=== PATIENT | male | born 1995 | race Caucasian/White ===

== ENCOUNTER 2019-10-10 09:19 | Emergency (ER) | payer OTHER ==
[2019-10-10 09:49] LABS: BASOPHILS % (AUTO) 0.2 %; EOSINOPHILS # (AUTO) 0.1 10^3/uL (0.0-0.7); EOSINOPHILS % (AUTO) 0.6 %; HGB - HEMOGLOBIN 13.2 g/dL (14.0-18.0); LYMPHOCYTES # (AUTO) 1.2 10^3/uL (1.5-3.5); LYMPHOCYTES % (AUTO) 12.1 %; MEAN CORPUSCULAR HGB CONC 34.2 g/dL (32.0-36.0); MEAN CORPUSCULAR VOLUME 87.7 fL (80.0-94.0); MEAN PLATELET VOLUME 9.9 fL (7.4-11.4); MONOCYTES # (AUTO) 0.4 10^3/uL (0.0-1.0); MONOCYTES % (AUTO) 4.5 %; NEUTROPHILS # (AUTO) 8.1 10^3/uL (1.5-6.6); NEUTROPHILS % (AUTO) 82.2 %; PLT - PLATELET COUNT 188 10^3/uL (130-450); RED CELL DISTRIBUTION WIDTH 13.2 % (12.0-15.0); WHITE BLOOD COUNT 9.8 x10^3/uL (4.8-10.8)
--- NOTE | 2019-10-10 10:01 | ED Physician Documentation ---
PD HPI NVD - Stated complaint Stated Complaint: VOMITING - Chief complaint Chief Complaint: Abd Pain - History obtained from History obtained from: Patient - History of Present Illness Timing - onset: How many hours ago (few), Today Timing - duration: Hours Timing - details: Abrupt onset (he says he had some upper abd discomfort and nausea this morning. Had then an emesis of bright red blood. Vomited again several minutes later and was coffee ground looking. Now with just some nausea. Concerned about the blood. Had gastritis from NSAIDs couple years ago with some melena at that time. Needed transfusion, so brisk bleeding. Had EGD with cautery per pt. No problems since and does not take NSAIDs. No regular stomach meds.), Still present (improved nausea and not feeling urgency of emesis at this time.) Associated symptoms: Abdominal pain (some upper abd pain this morning. Borden okay yesterday.). No: Melena, Near syncope / syncope, Loss of appetite Contributing factors: Alcohol use (had some vodka drinks last night; does not drink daily, but occasional (once/twice weekly).). No: Sick contact, Bad food, Travel Improved by: No: Vomiting Worsened by: Eating Similar symptoms before: Diagnosis (had ulcer/gastritis from NSAIDs in the past with bleeding.) Review of Systems Constitutional: denies: Fever, Chills, Myalgias Nose: denies: Rhinorrhea / runny nose, Congestion Throat: denies: Sore throat Respiratory: denies: Cough GI: reports: Abdominal Pain, Nausea, Vomiting, Hematemesis. denies: Abdominal Swelling, Constipation, Diarrhea, Bloody / black stool : denies: Dysuria, Frequency Neurologic: denies: Generalized weakness, Focal weakness, Numbness, Near syncope, Altered mental status Endocrine: denies: Weight loss, Easy bruising / bleeding PD PAST MEDICAL HISTORY - Past Medical History Cardiovascular: None Respiratory: None Neuro: None Endocrine/Autoimmune: None GI: GI bleed, Ulcers - Present Medications Home Medications: Ambulatory Orders Medication Instructions Recorded Confirmed Famotidine 20 mg PO DAILY #15 tablet 10/10/19 Ondansetron Odt [Zofran] 4 mg TL Q6H PRN #15 tablet 10/10/19 - Allergies Allergies/Adverse Reactions: Allergies Allergy/AdvReac Type Severity Reaction Status Date / Time No Known Drug Allergies Allergy Verified 10/10/19 09:28 - Social History Does the pt smoke?: No Smoking Status: Never smoker PD ED PE NORMAL - Vitals Vital signs reviewed: Yes - General General: Alert and oriented X 3, No acute distress, Well developed/nourished - HEENT HEENT: Pharynx benign - Neck Neck: Supple, no meningeal sign, No adenopathy - Cardiac Cardiac: RRR, No murmur - Respiratory Respiratory: Clear bilaterally - Abdomen Abdomen: Normal bowel sounds, Soft, Non tender, Non distended - Derm Derm: Normal color, Warm and dry - Extremities Extremities: Normal ROM s pain - Neuro Neuro: Alert and oriented X 3, No motor deficit, Normal speech Results - Vitals Vitals: Oxygen O2 Source Room air - Labs Labs: Laboratory Tests 10/10/19 10/10/19 10/10/19 09:30 09:30 09:30 WBC 9.8 RBC 4.40 L Hgb 13.2 L Hct 38.6 L MCV 87.7 MCH 30.0 MCHC 34.2 RDW 13.2 Plt Count 188 MPV 9.9 Neut # (Auto) 8.1 H Lymph # (Auto) 1.2 L [place]erry # (Auto) 0.4 Eos # (Auto) 0.1 Baso # (Auto) 0.0 Absolute Nucleated RBC 0.00 Nucleated RBC % 0.0 Sodium 137 Potassium 4.0 Chloride 103 Carbon Dioxide 27 Anion Gap 7.0 BUN 14 Creatinine 0.7 Estimated GFR (MDRD) 139 Glucose 125 H Calcium 9.1 Magnesium 2.1 Total Bilirubin 0.3 AST 21 ALT 17 Alkaline Phosphatase 33 L Total Protein 7.4 Albumin 4.7 Globulin 2.7 Albumin/Globulin Ratio 1.7 Lipase 24 PD MEDICAL DECISION MAKING - ED course Complexity details: considered differential (reported hematemesis without preceding gastritis symptoms. Drinks irregularly (couple times a week), so unlikely varices/liver problems. Consider Lenka Tijerina tear versus alcoholic gastritis. No further vomiting here. Not nauseated now. Stable blood count and vitals. ), d/w patient Departure - Departure Disposition: 01 Home, Self Care Clinical Impression: Nausea and vomiting Qualifiers: Vomiting type: hematemesis Qualified Code(s): K92.0 - Hematemesis Hematemesis Qualifiers: Nausea presence: with nausea Qualified Code(s): K92.0 - Hematemesis Condition: Stable Record reviewed to determine appropriate education?: Yes Instructions: ED Bleed UGI Stable, ED Nausea Vomiting Follow-Up: [facility] [Provider Group] Prescriptions: Famotidine 20 mg PO DAILY #15 tablet Ondansetron Odt [Zofran] 4 mg TL Q6H PRN #15 tablet PRN Reason: Nausea / Vomiting Comments: Home and rest today. Small frequent fluids and bland food. Return to work tomorrow if feeling improved. Expect some dark stool today and tomorrow since you had some bleeding from your stomach. That should taper down and dissipate within 2 to 3 days. Ondansetron if needed for nausea. I would suggest famotidine acid reducing medicine daily for 10 days or so. Recheck if not improved well over the next couple of days and return sooner if repeated vomiting or appearing increased bleeding. Forms: Activity restrictions Discharge Date/Time: 10/10/19 11:26
[2019-10-10 10:04] LABS: ALBUMIN 4.7 g/dL (3.2-5.5); ALBUMIN/GLOBULIN RATIO 1.7 (1.0-2.2); BILIRUBIN,TOTAL 0.3 mg/dL (0.2-1.0); CALCIUM 9.1 mg/dL (8.5-10.3); CREATININE 0.7 mg/dL (0.6-1.2); TOTAL PROTEIN 7.4 g/dL (6.7-8.2)
[2019-10-10] MEDS: SODIUM CHLORIDE 0.9% 1,000 ML IV ONE (10:32)
[2019-10-10] MEDS: ONDANSETRON 4 MG/2 ML VIAL IVP STA (10:33)
[2019-10-10] MEDS: MAG HYDROX/AL HYDROX/SIMETH 30 ML UDC PO STA (10:33)
[2019-10-10] MEDS: FAMOTIDINE 20 MG/2 ML SYRINGE IVP STA (10:33)
[2019-10-10] MEDS: LIDOCAINE VISCOUS 2% 15 ML UDC MM STA (10:33)
[2019-10-10 11:26] VITALS: BP 128/88
== END 2019-10-10 11:26 | disposition home or self-care (01) ==
LOC: ED 09:19
DX: K92.0 Hematemesis (principal)
CPT/HCPCS: 36415; 80053; 83690; 83735; 85025; 96361; 96374; 99284

== ENCOUNTER 2021-03-19 12:43 | Outpatient (CLI) | payer OTHER ==
[2021-03-19 13:28] VITALS: BP 132/85
--- NOTE | 2021-03-19 13:28 | SLEEP CARE CONSULTATION ---
Information from patient questionnaire entered by Huyen Hubbard. I have reviewed and concur with the information entered by Huyen Hubbard. This document represents the service I personally performed and the decisions made by me, Chitra Melvin ARNP. History of Present Illness Service Date and Time: 03/19/2021 1243 Reason for Visit: New patient Chief Complaint: reports: Unrefreshed sleep, Snoring, Excessive daytime sleepiness, Fatigue, Frequent awakenings at night Date of Onset: 2 years Usual bedtime: 2405-9648 Time it takes to fall asleep: 30-45 minutes Snores at night: Yes Observed to quit breathing while asleep: Yes Sleeps alone due to snoring: No Number of times waking at night: 3-10 Reasons for waking at night: reports: Snoring, Pain, Other (unknown reasons) Toss, Turn, or Twitch while sleeping: Yes Recalls having dreams: No (cannot remember a dream for a long time) Usually gets out of bed at: 1813-6503 Feels refreshed in the morning: No Morning headache: Yes (3 days a week, william during allergy season; they last less than hour) Sleepy or fatigued during the day: Yes Ever fallen asleep while driving: No Takes day naps: No Dreams during day naps: No Prior sleep studies: No Additional HPI information: I had the pleasure of seeing PHOEBE LARSON today regarding the possibility of him having a sleep disorder. His current complaints are excessive daytime sleepiness, fatigue, frequent night awakenings, snoring and unrefreshed sleep. He has been having trouble with his sleep for about 2 years with snoring, unrefreshed sleep and frequent night awakenings. He states in the last 6 months his sleeping issues/fatigue have gotten worse. He wakes up feeling exhausted/tired. His gets after him for snoring loudly but continues to sleep in same room. She has not seen more than a momentary pause in breathing without any gasping/choking sounds. He states he feels like he needs more air nearly every morning. He is not gasping but feels like he needs to take a few deep breath waking up. He toss/turns at night and wakes up between 3-10 times a night. He has not been able to remember dreaming for a long time. He is able to go back to sleep within 5 minutes of waking but sometimes he has no reason for waking up at all. He sometimes has pain in the back of his throat with some oral dryness that wakes him up as well. His father has sleep apnea and is treated. 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 Patient is and lives in [place]. Have you smoked in the past 12 months: No Cigarettes per day (20/pack): 30 Years of smokin Quit date: 2018 Smoking Pack Years: 9.0 Alcohol use: Yes Alcohol amount and frequency: 3-4/week Caffeine use: Yes Caffeine amount and frequency: 1/day Family History Family history of sleep disordered breathing: Yes Family Hx Sleep Apnea: Father: Snoring, Sleep apnea - Treated, Sibling: Snoring, Grandparent: Snoring Allergies and Home Medications Drug allergies reviewed: Yes (Cefprozil) Home medication list reviewed: Yes Allergy and home medication list: Meloxicam Famotidine Review of Systems Weight gain over past 5 years: 20 Cardiovascular: denies: high blood pressure Gastrointestinal: denies: heartburn Neurological: reports: headaches. denies: head trauma Psychiatric: reports: anxiety Ear/Nose/Throat: reports: sinus problems, wisdom teeth removed (50%). denies: injury to nose, tonsillectomy Endocrine: reports: sluggishness, too hot or cold, increased appetite. denies: thyroid disease Musculoskeletal: reports: joint pain, neck pain, back pain Immunologic: reports: sneezing, allergies to food or environment (cashew, [place], seasonal allergies) Physical Exam Blood Pressure: 132/85 Cuff size: wrist Heart Rate: 65 O2 Saturation: 98 Height: 5 ft 6 in Weight: 179 lb Body Mass Index: 28.8 BMI Classification: Overweight Neck circumference: 14.25 (inches) Nostrils: patent to airflow Mouth and throat: narrow oropharynx Soft palate: long Hard palate: normal Uvula visualization: 50% Mallampati Class II Tongue: enlarged in size with teeth lucero on lateral edges Tonsils: 1+ Neck: normal w/o lymphadenopathy or thyromegaly Heart: regular rate and rhythm Lungs: clear bilaterally Impression and Plan 1. Suspected Obstructive Sleep Apnea-Hypopnea Syndrome, as suggested by a history of loud and irregular snoring, gasping or choking in sleep, morning headache, frequent awakening during the night, unrefreshed sleep, cognitive impairment, and excessive daytime sleepiness. Narrow oropharynx and obesity are common predisposing factors for obstructive sleep apnea-hypopnea syndrome. I recommend proceeding to polysomnography to confirm the diagnosis and to assess severity. If the patient has significant sleep disordered breathing, a manual CPAP titration study will also be performed to find the optimal treatment pressure. I informed the patient of what the sleep studies involve and after some discussion, obtained agreement to proceed. The pathophysiology of obstructive sleep apnea-hypopnea syndrome was discussed with the patient and health risks of cardiovascular and cerebrovascular disease if not treated. AASM brochure for obstructive sleep apnea-hypopnea syndrome given and reviewed. 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 Patient agreed to plan. * Schedule polysomnography +- manual CPAP titration study and return in 1-2 weeks after the study to discuss result and initiate therapy. * Avoid long distance driving or driving when feeling sleepy. * Avoid alcohol, sedative and muscle relaxant around bedtime. * Attempt to lose weight. * Review instructions provided by trained office staff on how to prepare for the sleep study. * Return for follow-up after sleep study completed. Counseling Topics: Weight loss health impact Visit Type: In Office Time Spent with Patient (minutes): 30 Provider Statement: I spent 100% of the Face to Face Visit with the patient with greater than 50% spent counseling the patient and coordination of care.
== END 2021-03-19 12:44 | disposition home or self-care (01) ==
LOC: SC 12:43
PROVIDERS: ATTEND Nurse Practitioner Family
DX: R06.83 Snoring (principal); R51.9 Headache, unspecified; G47.8 Other sleep disorders; R41.89 Other symptoms and signs involving cognitive functions and awareness; G47.10 Hypersomnia, unspecified
CPT/HCPCS: 99203; 99212

== ENCOUNTER 2021-06-26 19:31 | Outpatient (CLI) | payer OTHER | END 2021-06-26 19:32 | disposition home or self-care (01) | LOC: SC 19:31 | PROVIDERS: ATTEND Nurse Practitioner Family | DX: R06.83 Snoring (principal); G47.8 Other sleep disorders; R53.83 Other fatigue; G47.10 Hypersomnia, unspecified | CPT/HCPCS: 95810 ==

== ENCOUNTER 2021-07-09 09:36 | Outpatient (CLI) | payer OTHER ==
[2021-07-09 09:59] VITALS: BP 128/67
--- NOTE | 2021-07-09 09:59 | SLEEP CARE CONSULTATION ---
Information from patient questionnaire entered by Godwin Live MA. I have reviewed and concur with the information entered by Godwin Live MA. This document represents the service I personally performed and the decisions made by Ngozi vera Caren J, ARNP. History of Present Illness Service Date and Time: 07/09/2021 0936 Initial [place] Sleepiness Scale score: 15 (in 2020) Current [place] Sleepiness Scale score: 12 (2021) Additional HPI information: PHOEBE LARSON returns for follow up and results of the recently performed polysomnography. The patient was informed of the following findings: No significant sleep disordered breathing with an average AHI of 2.5 and nitza oxygen saturation of 88%. He only slept supine during the study with minimal snoring noted. I explained the pathophysiology behind obstructive sleep apnea. Patient does not have sleep apnea and was advised how weight gain could increase the risk of developing sleep apnea in the future. Patient has mild snoring. Snoring can be reduced by weight loss. Weight loss is best achieved with diet consult. Patient instructed to contact PCP for referral. Snoring can also be treated with an oral appliance from a dentist. Advised to check insurance coverage. In addition, an ENT evaluation can be do to see if other treatment is indicated. Patient does not drink alcohol. Patient was cautioned about risks of drowsy driving until sleepiness symptoms resolve. Patient denies drowsy driving. Sleep Study - Results Type of Sleep Study: Polysomnography Prior sleep studies: No Polysomnography/Home Sleep Study results: IMPRESSION: The quality of the study is good. The patient had normal sleep efficiency. The sleep architecture was relatively normal as well considering the first night effect. Respiratory monitoring showed no significant sleep disordered breathing (AHI = 2.5) or hypoxia (nitza oxygen saturation of 88%). The patient only slept supine during this study. Snore was light in intensity. There was no significant periodic leg movement of sleep. Cardiac rhythm was normal sinus rhythm without significant arrhythmia. No abnormal behavior (parasomnia) observed during the night. Allergies and Home Medications Known drug allergies: Yes (CEFZIL) Drug allergies reviewed: Yes Home medication list reviewed: Yes (no changes) Review of Systems Review of systems same as previous: Yes (no changes) Physical Exam Vital signs obtained and entered by: Kendy FRY Blood Pressure: 128/67 (LEFT, PULSE 64) Heart Rate: 71 O2 Saturation: 98 (WITH PAPER MASK) Height: 5 ft 6 in Weight: 170 lb (WITH BOOTS AND UNIFORM) Body Mass Index: 27.4 BMI Classification: Overweight Impression and Plan Snoring but no significant sleep disordered breathing. Patient advised that often weight loss will reduce snoring as well as apnea risk. An oral appliance can also be used for snoring. This would require a dental consultation. Patient cautioned not to use other online appliances as can cause bite issues. A list of accredited dentists in [facility] and one local dentist who makes oral appliances is available in office. Patient is advised to check if insurance will cover. An ENT consult can also be helpful to determine if any other treatment is an option. AASM pamphlet How to sleep better given and reviewed with patient. * Attempt to lose weight * The patient is cautioned about driving until sleepiness is completely resolved. * Return as needed for follow up. Counseling Topics: Weight loss health impact Visit Type: In Office Time Spent with Patient (minutes): 12 Provider Statement: I spent 100% of the Face to Face Visit with the patient with greater than 50% spent counseling the patient and coordination of care.
== END 2021-07-09 09:37 | disposition home or self-care (01) ==
LOC: SC 09:36
PROVIDERS: ATTEND Nurse Practitioner Family
DX: R06.83 Snoring (principal); E66.3 Overweight; Z68.27 Body mass index [BMI] 27.0-27.9, adult
CPT/HCPCS: 99212